=== PATIENT | male | born 1990 | race African-American/Black ===

== ENCOUNTER 2023-05-17 14:01 | Emergency (ER) | payer BC, SELFPAY ==
[2023-05-17 14:01] VITALS: BP 158/92; PULSE 110; RESP 18; TEMP 37.1; O2SAT 100
--- NOTE | 2023-05-17 15:04 | ED.GENADULT ---
HPI - General Adult General Chief complaint: Skin/Abscess/Foreign Body Stated complaint: abscess to neck Time Seen by Provider: 05/17/23 14:25 History of Present Illness HPI narrative: 32yo man with recurrent folliculitis barbae, neck boils, presents with a left anterior neck boil for the past several days that he popped yesterday, draining a great deal of pus. It has since seemed to reaccumulate and is tender. No fevers or chills. No dyspnea or dysphagia. Related Data Allergies Allergy/AdvReac Type Severity Reaction Status Date / Time No Known Allergies Allergy Verified 05/17/23 14:17 Review of Systems Review of Systems: All systems reviewed & are unremarkable except as noted in HPI and below Constitutional: Constitutional: Denies chills and Denies fever(s) ENT: Denies dysphagia Cardiovascular: Cardiovascular: Denies chest pain Respiratory: Respiratory: Denies dyspnea Exam Const: General: healthy appearing and no acute distress Nutritional Appearance: well nourished HENMT: Other: left anterior superficial neck mass 1x2 cm with cutaneous draining sinus tract, no surrounding cellulitis Eyes: Conjunctivae: conjunctivae normal Resp: Effort & Inspection: normal respiratory effort and not labored Cardio: Rate: regular rate Course Vital Signs Vital signs: Vital Signs Temperature 37.1 C 05/17/23 14:01 Pulse Rate 110 H 05/17/23 14:01 Respiratory Rate 18 05/17/23 14:01 Blood Pressure 158/92 H 05/17/23 14:01 Pulse Oximetry 100 05/17/23 14:01 Oxygen Delivery Room Air 05/17/23 14:01 Temperature 37.1 C 05/17/23 14:01 Pulse Rate 110 H 05/17/23 14:01 Respiratory Rate 18 05/17/23 14:01 Blood Pressure 158/92 H 05/17/23 14:01 Pulse Oximetry 100 05/17/23 14:01 Oxygen Delivery Room Air 05/17/23 14:01 Medical Decision Making [facility] Narrative Medical decision making narrative: anterior neck mass DDx appears to be a superficial boil, no evidence of cellulitis, deeper abscess, hematoma, or branchial cleft cyst. Vital Signs Vital Signs: Vital Signs Temperature 37.1 C 05/17/23 14:01 Pulse Rate 110 H 05/17/23 14:01 Respiratory Rate 18 05/17/23 14:01 Blood Pressure 158/92 H 05/17/23 14:01 Pulse Oximetry 100 05/17/23 14:01 Oxygen Delivery Room Air 05/17/23 14:01 Temperature 37.1 C 05/17/23 14:01 Pulse Rate 110 H 05/17/23 14:01 Respiratory Rate 18 05/17/23 14:01 Blood Pressure 158/92 H 05/17/23 14:01 Pulse Oximetry 100 05/17/23 14:01 Oxygen Delivery Room Air 05/17/23 14:01 Discharge Plan Discharge Clinical Impression: Boil of neck Patient Disposition: Home, Self-Care Condition: Stable Instructions: Antibiotic Form Additional Instructions: For the next 3 days, you will need to take a hot shower three times each day and, while in the shower, let hot water run over your boil to bring it to temperature and loosen it up and then express as much drainage from the wound as you can. At the same time, take the prescribed antibiotics twice each day for one week to prevent infection from spreading into deeper tissues and the bloodstream. Prescriptions: New sulfamethoxazole-trimethoprim [Bactrim DS] 800-160 mg tablet 2 tablet PO BID 7 Days Qty: 28 0RF Follow-up/Referrals: Grant,Meño Platt MD [Primary Care Provider] - Time of Disposition: 15:09
== END 2023-05-17 15:20 | disposition home or self-care (01) ==
PROVIDERS: Emergency Provider Emergency Medicine; PCP Family Medicine
DX: L02.12 Furuncle of neck (principal)
CPT/HCPCS: 99283

== ENCOUNTER 2023-05-20 00:49 | Emergency (ER) | payer BC, SELFPAY ==
[2023-05-20 00:50] VITALS: BP 148/82; PULSE 98; RESP 18; TEMP 37.1; O2SAT 99
--- NOTE | 2023-05-20 01:03 | ED.GENADULT ---
HPI - General Adult General Chief complaint: Skin/Abscess/Foreign Body Stated complaint: Wound History of Present Illness HPI narrative: Healthy 32yo man seen here 2 days ago with a boil on the left anterior neck associated with an in-grown hair. Boil was spontaneously draining so patient prescribed Bactrim antibiotics but he says he never started them. Now returns with increased swelling, pain, redness. No fever. He has been doing hot showers and expressing fluid. No dyspnea or dysphagia. Related Data Allergies Allergy/AdvReac Type Severity Reaction Status Date / Time No Known Allergies Allergy Verified 05/17/23 14:17 Review of Systems Review of Systems: All systems reviewed & are unremarkable except as noted in HPI and below Constitutional: Constitutional: Denies chills and Denies fever(s) ENT: Denies dysphagia Cardiovascular: Cardiovascular: Denies chest pain Respiratory: Respiratory: Denies dyspnea Gastrointestinal: Gastrointestinal: Denies abdominal pain Exam Const: General: healthy appearing Nutritional Appearance: well nourished HENMT: Other: same boil seen 2 days ago remains similar size with an open sinus tract, but now with worsening cellulitis and induration down the anterior neck. He also appears to have discomfort when turning the neck. Eyes: Conjunctivae: conjunctivae normal Resp: Effort & Inspection: normal respiratory effort and not labored Auscultation: clear to auscultation bilaterally Other: no stridor Cardio: Rate: regular rate Skin: General skin exam: normal color, no jaundice and no pallor Course Vital Signs Vital signs: Vital Signs Temperature 37.1 C 05/20/23 00:50 Pulse Rate 98 05/20/23 00:50 Respiratory Rate 18 05/20/23 00:50 Blood Pressure 148/82 H 05/20/23 00:50 Pulse Oximetry 99 05/20/23 00:50 Oxygen Delivery Room Air 05/20/23 00:50 Temperature 37.1 C 05/20/23 00:50 Pulse Rate 98 05/20/23 00:50 Respiratory Rate 18 05/20/23 00:50 Blood Pressure 148/82 H 05/20/23 00:50 Pulse Oximetry 98 05/20/23 01:05 Oxygen Delivery Room Air 05/20/23 01:05 Medical Decision Making [facility] Narrative Medical decision making narrative: Superficial boil now complicating with surrounding cellulitis and concern for possible abscess spread. There is no respiratory tract involvement or swallow involvement but I do not like the trajectory. I suspected MRSA before and the rapid spread has me still concerned for MRSA. Discussed with pt that this needs to be evaluated right away by a surgeon, but we have none here, and so I told him we will need to transfer him out. Pt voices understanding, but declines to be transferred because he states he cannot leave his vehicle here. Pt chooses to leave against medical advice in order to drive himself. I have told patient that he absolutely must go to the ED, cannot return home. I have provided additional printed out prescriptions to ensure that he will get them filled when his care is complete but have stressed to him that he must first go to the ED and then when his care is completed he may return home to have these prescriptions filled and must take them without fail. Pt is alert, has intact MDM capacity, and voiced understanding of these instructions. He has signed the AMA form and is leaving now to report himself to [place] ED. Vital Signs Vital Signs: Vital Signs Temperature 37.1 C 05/20/23 00:50 Pulse Rate 98 05/20/23 00:50 Respiratory Rate 18 05/20/23 00:50 Blood Pressure 148/82 H 05/20/23 00:50 Pulse Oximetry 99 05/20/23 00:50 Oxygen Delivery Room Air 05/20/23 00:50 Temperature 37.1 C 05/20/23 00:50 Pulse Rate 98 05/20/23 00:50 Respiratory Rate 18 05/20/23 00:50 Blood Pressure 148/82 H 05/20/23 00:50 Pulse Oximetry 98 05/20/23 01:05 Oxygen Delivery Room Air 05/20/23 01:05 Discharge Plan Discharge Clinical Impression: Cellulitis and
[2023-05-20 01:05] VITALS: O2SAT 98
[2023-05-20] MEDS: SULFAMETHOXAZOLE/TRIMETHOPRIM 800/160 MG DS TABLET 2 TAB PO (01:22)
[2023-05-20] MEDS: KETOROLAC (*BKC) 60 MG/2 ML VIAL IM (01:27)
[2023-05-20] MEDS: cefTRIAXone 1 GM, LIDOCAINE HCL 1% LOCAL INJ 2.1 ML IM (01:32)
== END 2023-05-20 01:35 | disposition left against medical advice (07) ==
PROVIDERS: Emergency Provider Emergency Medicine; PCP Family Medicine
DX: L02.11 Cutaneous abscess of neck (principal)
CPT/HCPCS: 96372; 99284; A9270; J1100; J1885